=== PATIENT | male | born 1980 | race African-American/Black ===

== ENCOUNTER 2020-12-24 13:29 | Emergency (ER) | payer SELFPAY ==
[~2020-12-24] VITALS: Ht 170.2 cm; Wt 72.7 kg
[2020-12-24] MEDS ORDERED: ONDANSETRON PF 4 MG/2 ML VIAL. IVP ONE (13:45)
[2020-12-24] MEDS ORDERED: MORPHINE SULFATE 4 MG/ML INJ. IV/SQ PRN (13:45)
[2020-12-24] MEDS ORDERED: IV NORMAL SALINE 1000ML BAG 1,000 ML IV SCH (13:45)
--- NOTE | 2020-12-24 13:49 | ED.ADGEN ---
Past Medical History Past Medical History: Anemia Past Surgical History: No Surgical History Smoking Status: Current Every Day Smoker Alcohol Use: Occasionally Drug Use: Marijuana General Adult EDM: Chief Complaint: CHEST PAIN HPI: HPI: Patient is a 40-year-old male who arrives ambulatory to the emergency department complaining of the abrupt onset of left-sided upper abdominal pain. Patient rep orts he was at work when this occurred. Patient describes his pain is sharp and constant. Patient states he has had associated episodes of nausea with vomiting since this pain began. Patient does report a history of gastritis and states he has anxiety as well. The patient does appear to be very anxious and animated. Despite this he denies any history of previous illness. He further states prior to this episode at work, he was doing just fine. He denies any fevers or genitourinary symptoms. He further denies any diarrhea or shortness of air. He is awake, alert and uncomfortable appearing. Review of Systems: Review of Systems: Constitutional: Denies fever or chills. [] Eyes: Denies change in visual acuity. [] HENT: Denies nasal congestion or sore throat. [] Respiratory: Denies cough or shortness of breath. [] Cardiovascular: Denies chest pain or edema. [] GI: Reports abdominal pain with nausea and vomiting. Denies bloody stools or diarrhea. [] : Denies dysuria. [] Musculoskeletal: Denies back pain or joint pain. [] Integument: Denies rash. [] Neurologic: Denies headache, focal weakness or sensory changes. [] Endocrine: Denies polyuria or polydipsia. [] Lymphatic: Denies swollen glands. [] Psychiatric: Denies depression or anxiety. [] Current Medications: Current Medications Medications (Trade) Dose Ordered Sig/Son Start Time Stop Time Status Last Admin Dose Admin Lorazepam (Ativan Inj) 2 mg 1X ONCE 12/24/20 15:15 12/24/20 15:16 DC 12/24/20 15:20 2 MG Morphine Sulfate (Morphine Sulfate) 4 mg PRN Q15MIN PRN 12/24/20 13:45 12/25/20 13:44 12/24/20 14:26 4 MG Ondansetron HCl (Zofran) 4 mg 1X ONCE 12/24/20 13:45 12/24/20 13:49 DC 12/24/20 14:24 4 MG Sodium Chloride 1,000 ml @ 1,000 mls/hr Q1H 12/24/20 13:45 12/24/20 14:44 DC 12/24/20 14:25 1,000 MLS/HR Allergies: Allergies: Allergies Coded Allergies Type Severity Reaction Last Updated Verified haloperidol Allergy Severe seizure 12/24/20 Yes promethazine Allergy Severe seizure 12/24/20 Yes Physical Exam: PE: Constitutional: Uncomfortable appearing. Well developed, well nourished, non- toxic appearance. [] HENT: Normocephalic, atraumatic, bilateral external ears normal, oropharynx moist, no oral exudates, nose normal. [] Eyes: PERRLA, EOMI, conjunctiva normal, no discharge. [] Neck: Normal range of motion, no tenderness, supple, no stridor. [] Cardiovascular:Heart rate regular rhythm, no murmur [] Lungs & Thorax: Bilateral breath sounds clear to auscultation [] Abdomen: Tenderness to palpation of left upper quadrant of his abdomen without guarding or rebound present. Bowel sounds normal, soft, no masses, no pulsatile masses. [] Skin: Warm, dry, no erythema, no rash. [] Back: No tenderness, no CVA tenderness. [] Extremities: No tenderness, no cyanosis, no clubbing, ROM intact, no edema. [] Neurologic: Alert and oriented X 3, normal motor function, normal sensory function, no focal deficits noted. [] Psychologic: Affect normal, judgement normal, mood normal. [] Current Patient Data: Labs: Laboratory Tests Test 12/24/20 14:20 White Blood Count 18.4 x10^3/uL (4.0-11.0) H Red Blood Count 4.41 x10^6/uL (4.30-5.70) Hemoglobin 13.9 g/dL (13.0-17.5) Hematocrit 41.3 % (39.0-53.0) Mean Corpuscular Volume 94 fL (79-100) Mean Corpuscular Hemoglobin 32 pg (25-35) Mean Corpuscular Hemoglobin Concent 34 g/dL (31-37) Red Cell Distribution Width 14.4 % (11.5-14.5) Platelet Count 588 x10^3/uL (140-400) H Neutrophils (%) (Auto) 68 % (31-73) Lymphocytes (%) (Auto) 23 % (24-48) L Monocytes (%) (Auto) 4 % (0-9) Eosinophils (%) (Auto) 4 % (0-3) H Basophils (%) (Auto) 2 % (0-3) Neutrophils # (Auto) 12.5 x10^3/uL (1.8-7.7) H Lymphocytes # (Auto) 4.2 x10^3/uL (1.0-4.8) Monocytes # (Auto) 0.7 x10^3/uL (0.0-1.1) Eosinophils # (Auto) 0.7 x10^3/uL (0.0-0.7) Basophils # (Auto) 0.3 x10^3/uL (0.0-0.2) H Sodium Level 137 mmol/L (136-145) Potassium Level 4.3 mmol/L (3.5-5.1) Chloride Level 103 mmol/L (98-107) Carbon Dioxide Level 22 mmol/L (21-32) Anion Gap 12 (6-14) Blood Urea Nitrogen 13 mg/dL (8-26) Creatinine 1.2 mg/dL (0.7-1.3) Estimated GFR (Cockcroft-Gault) 81.1 BUN/Creatinine Ratio 11 (6-20) Glucose Level 118 mg/dL (70-99) H Calcium Level 9.4 mg/dL (8.5-10.1) Total Bilirubin 0.3 mg/dL (0.2-1.0) Aspartate Amino Transferase (AST) 24 U/L (15-37) Alanine Aminotransferase (ALT) 42 U/L (16-63) Alkaline Phosphatase 89 U/L (46-116) Troponin I High Sensitivity < 4 ng/L (4-75) L Total Protein 7.7 g/dL (6.4-8.2) Albumin 3.7 g/dL (3.4-5.0) Albumin/Globulin Ratio 0.9 (1.0-1.7) L Lipase 83 U/L (73-393) Laboratory Tests 12/24/20 14:20 Laboratory Tests 12/24/20 14:20 Vital Signs: Vital Signs Date Time Temp Pulse Resp B/P (MAP) Pulse Ox O2 Delivery O2 Flow Rate FiO2 12/24/20 15:47 84 14 152/77 (102) 100 Nasal Cannula 2.0 12/24/20 13:30 97.5 97.5 EKG: EKG: [] EKG was obtained at 1336 hrs. and reveals a sinus rhythm with a ventricular rate of 91 bpm. This is an otherwise normal-appearing EKG without any acute signs of ischemia. Heart Score: C/O Chest Pain: No HEART Score for Chest Pain: HEART Score for Chest Pain Response (Comments) Value History Slighlty/Non-Suspicious 0 ECG Normal 0 Age < 45 0 Risk Factors No Risk Factors 0 Troponin < Normal Limit 0 Total 0 Risk Factors: Risk Factors: DM, Current or recent (<one month) smoker, HTN, HLP, family history of CAD, obesity. Risk Scores: Score 0 - 3: 2.5% MACE over next 6 weeks - Discharge Home Score 4 - 6: 20.3% MACE over next 6 weeks - Admit for Clinical Observation Score 7 - 10: 72.7% MACE over next 6 weeks - Early Invasive Strategies Radiology/Procedures: Radiology/Procedures: [][facility] [address] [place] [address] IMAGING REPORT Signed PATIENT: ADRY GARDUNO ACCOUNT: [id number] : 1980 LOCATION: ER AGE: 40 SEX: M EXAM STATUS: PRE ER ORD. PHYSICIAN: ARLYN PRADO DO REASON: Abdominal pain with nausea and vomiting PROCEDURE: ACUTE ABDOMEN SERIES 2 view abdominal series and AP portable chest x-ray Clinical indications: Abdominal pain with nausea and vomiting. FINDINGS: No obstructive bowel pattern is seen. No abnormal fecal retention is seen. No free intraperitoneal air or air-fluid levels are seen. The osseous structures are intact. Chest x-ray demonstrates no acute lung infiltrate or pleural effusion or pulmonary edema or pneumothorax. The heart size and pulmonary vasculature and mediastinum and both dixie are unremarkable. IMPRESSION: No acute abnormality. Electronically signed by: Krissy Godoy MD (12/24/2020 2:42 PM) [id number] DICTATED and SIGNED BY: KRISSY GODOY MD DATE: 12/24/20 [id number] [facility] [address] [place] [address] IMAGING REPORT Signed PATIENT: ADRY GARDUNO ACCOUNT: [id number] : 1980 LOCATION: ER AGE: 40 SEX: M EXAM STATUS: PRE ER ORD. PHYSICIAN: ARLYN PRADO DO REASON: Left upper abdominal/flank pain PROCEDURE: CT ABDOMEN PELVIS WO CONTRAST EXAM: CT Abdomen and Pelvis without IV contrast CLINICAL HISTORY: Left upper abdominal/flank pain COMPARISON: none TECHNIQUE: Helical CT of the abdomen and pelvis without intravenous contrast. Axial, coronal and sagittal reformatted images were generated. PQRS compliance statement - One or more of the following individualized dose reduction techniques were utilized for this study: 1. Automated exposure control 2. Adjustment of the mA and/or kV according to patient size 3. Use of iterative reconstruction technique FINDINGS: Lack of intravenous contrast limits evaluation of solid organs, vasculature, and lymph nodes. Lower chest: Lung bases are clear. Abdomen and Pelvis: No focal liver lesion. Gallbladder is normal. No biliary duct dilatation. Pancreas is unremarkable. Spleen is normal in appearance. Adrenal glands are unremarkable. No focal renal lesion. No hydronephrosis. No hydroureter. Bladder is unremarkable. No renal tract calculus. Aorta is normal in caliber. Appendix is normal. Mild colonic stool content is seen. No small or large bowel dilatation. Appendix is normal. No bowel obstruction. No abdominal or pelvic ascites. No abdominal or pelvic lymphadenopathy. Bones: No aggressive osseous lesion is seen. IMPRESSION: 1. No renal tract calculus. 2. No bowel obstruction. Moderate colonic stool content. 3. Appendix is normal. Electronically signed by: Pablo Jones MD (12/24/2020 3:36 PM) [id number] DICTATED and SIGNED BY: PABLO JONES MD DATE: 12/24/20 [id number] 0 Course & Med Decision Making: Course & Med Decision Making Pertinent Labs and Imaging studies reviewed. (See chart for details) The patient initially was very loud and even aggressive at times. The patient was treated with pain medication and eventually provided with Ativan in order to help calm him. This worked very successfully the patient is resting c omfortably now. I do suspect that his anxiety is playing a large role in his presentation. Patient does have findings of fecal retention on CT imaging without any other acute pathology. I have advised that he take a liquid diet over the next 24 hours and even consider stool softeners. Should the patient develop any fevers, intractable vomiting or worsening pain, I advised that he return. The patient and his understand and have agreed to return as needed. The patient is nontoxic-appearing and resting comfortably. His abdomen is soft, nontender nor distended. He is stable for discharge in the company of his . [] Dragon Disclaimer: Dragon Disclaimer: This electronic medical record was generated, in whole or in part, using a voice recognition dictation system. Departure Departure Impression: Primary Impression: Abdominal pain Additional Impressions: Nausea & vomiting Fecal retention Disposition: HOME / SELF CARE / HOMELESS Condition: IMPROVED Referrals: NO PCP (PCP) Patient Instructions: Abdominal Pain, Constipation, Adult, Nausea and Vomiting Scripts Dicyclomine Hcl (DICYCLOMINE HCL) 10 Mg Capsule 1 CAP PO PRN Q6HRS for 5 Days, #20 CAP 3 Refills Prov: ARLYN PRADO DO 12/24/20 Ondansetron Hcl (ZOFRAN) 4 Mg Tablet 1 TAB PO PRN Q6-8HRS for nausea, #12 TAB Prov: ARLYN PRADO DO 12/24/20 Problem Qualifiers ARLYN PRADO DO Dec 24, 2020 13:48
[2020-12-24 14:43] LABS: BASO # 0.3 x10^3/uL (0.0-0.2); BASO % 2 % (0-3); EOS # 0.7 x10^3/uL (0.0-0.7); EOS % 4 % (0-3); HEMATOCRIT 41.3 % (39.0-53.0); HEMOGLOBIN 13.9 g/dL (13.0-17.5); LYMPH # 4.2 x10^3/uL (1.0-4.8); LYMPH % 23 % (24-48); MEAN CORPUSCULAR HEMOGLOBIN 32 pg (25-35); MEAN CORPUSCULAR HGB CONC 34 g/dL (31-37); MEAN CORPUSCULAR VOLUME 94 fL (79-100); MONO # 0.7 x10^3/uL (0.0-1.1); MONO % 4 % (0-9); NEUT # 12.5 x10^3/uL (1.8-7.7); NEUT % 68 % (31-73); PLATELET COUNT 588 x10^3/uL (140-400); RED BLOOD COUNT 4.41 x10^6/uL (4.30-5.70); RED CELL DISTRIBUTION WIDTH 14.4 % (11.5-14.5); WHITE BLOOD COUNT 18.4 x10^3/uL (4.0-11.0)
--- NOTE | 2020-12-24 14:44 | RAD ---
2 view abdominal series and AP portable chest x-ray Clinical indications: Abdominal pain with nausea and vomiting. FINDINGS: No obstructive bowel pattern is seen. No abnormal fecal retention is seen. No free intraper itoneal air or air-fluid levels are seen. The osseous structures are intact. Chest x-ray demonstrates no acute lung infiltrate or pleural effusion or pulmonary edema or pneumotho rax. The heart size and pulmonary vasculature and mediastinum and both dixie are unremarkable. IMPRESSION: No acute abnormality. Electronically signed by: Haroon Godoy MD (12/24/2020 2:42 PM) [id number]
[2020-12-24 15:02] LABS: CALCIUM 9.4 mg/dL (8.5-10.1); CREATININE 1.2 mg/dL (0.7-1.3); GFR 81.1; POTASSIUM 4.3 mmol/L (3.5-5.1)
[2020-12-24 15:08] LABS: ALBUMIN 3.7 g/dL (3.4-5.0); ALBUMIN/GLOBULIN RATIO 0.9 (1.0-1.7); TOTAL BILIRUBIN 0.3 mg/dL (0.2-1.0); TOTAL PROTEIN 7.7 g/dL (6.4-8.2)
--- NOTE | 2020-12-24 15:38 | RAD ---
EXAM: CT Abdomen and Pelvis without IV contrast CLINICAL HISTORY: Left upper abdominal/flank pain COMPARISON: none TECHNIQUE: Helical CT of the abdomen and pelvis without intravenous contrast. Axial, coronal and sagi ttal reformatted images were generated. PQRS compliance statement - One or more of the following individualized dose reduction techniques wer e utilized for this study: 1. Automated exposure control 2. Adjustment of the mA and/or kV according to patient size 3. Use of iterative reconstruction technique FINDINGS: Lack of intravenous contrast limits evaluation of solid organs, vasculature, and lymph nodes. Lower chest: Lung bases are clear. Abdomen and Pelvis: No focal liver lesion. Gallbladder is normal. No biliary duct dilatation. Pancreas is unremarkable. S pleen is normal in appearance. Adrenal glands are unremarkable. No focal renal lesion. No hydronephro sis. No hydroureter. Bladder is unremarkable. No renal tract calculus. Aorta is normal in caliber. Appendix is normal. Mild colonic stool content is seen. No small or large bowel dilatation. Appendix is normal. No bowel obstruction. No abdominal or pelvic ascites. No abdominal or pelvic lymphadenopathy. Bones: No aggressive osseous lesion is seen. IMPRESSION: 1. No renal tract calculus. 2. No bowel obstruction. Moderate colonic stool content. 3. Appendix is normal. Electronically signed by: Pablo Asher MD (12/24/2020 3:36 PM) [facility]
[2020-12-24] MEDS ORDERED: ONDA4TAB7 PO (16:02)
[2020-12-24] MEDS ORDERED: DICY10CA3 PO (16:02)
[2020-12-24 16:18] VITALS: BP 162/104
--- NOTE | 2020-12-24 23:45 | EKG ---
[facility] [address] [place] [address] Test Date: 2020-12-24 Test Time: 13:36:26 Pat Name: ADRY GARDUNO Department: Room: Gender: M Afternoon Nanny: : 1980 Requested By: ARLYN PRADO Order Number: [id number] Reading MD: Denzel Mullins MD Measurements Intervals [place] Rate: 91 P: 90 [place]: 118 QRS: 71 QRSD: 90 T: 59 QT: 330 QTc: 407 Interpretive Statements SINUS RHYTHM Electronically Signed On 12-29-2020 14:11:55 [employer] by Denzel Mullins MD
== END 2020-12-24 16:18 | disposition home or self-care (01) ==
LOC: ER 13:29
DX: K59.00 Constipation, unspecified (principal); R11.2 Nausea with vomiting, unspecified; F17.200 Nicotine dependence, unspecified, uncomplicated; Z88.8 Allergy status to other drugs, medicaments and biological substances
CPT/HCPCS: 36415; 74022; 74176; 80053; 83690; 84484; 85025; 93005; 96361; 96374; 96375; 99285; J2060; J2270; J2405; J7030

== ENCOUNTER 2021-06-08 17:16 | Emergency (ER) | payer MEDICAID ==
[~2021-06-08 17:16] MED LIST: DICY10CA3 PO; ONDA4TAB7 PO
== END 2021-06-08 17:48 | disposition left against medical advice (07) ==
LOC: ER 17:16
DX: R10.9 Unspecified abdominal pain (principal); Z53.21 Procedure and treatment not carried out due to patient leaving prior to being seen by health care provider